=== PATIENT | female | born 1950 | race Caucasian/White ===

== ENCOUNTER 2021-01-31 08:57 | Inpatient (IN) ==
[2021-01-31] MEDS ORDERED: *HR* LORazepam 2 MG/ML VIAL ONE (09:03)
[2021-01-31] MEDS ORDERED: Isovue-370 500 ML BOTTLE IVP ONE ×2 (09:10→15:58)
[2021-01-31 09:25] LABS: Basophils % 0.3 %; Eosinophils # 0.1 K/mcL (0.0-0.6); Eosinophils % 0.5 %; Hematocrit 42.5 % (35.3-44.9); Hemoglobin 14.3 g/dL (11.5-15.4); Immature Granulocytes % 0.4 % (0-4); Lymphocytes # 2.3 K/mcL (0.6-4.6); Lymphocytes % 16.3 %; Mean Corpuscular HGB Conc 33.6 g/dL (31.6-35.5); Mean Corpuscular Hemoglobin 29.2 pg (28.0-33.3); Mean Corpuscular Volume 86.9 fL (83.0-100.0); Mean Platelet Volume 10.1 fL (9.4-12.4); Monocytes # 0.8 K/mcL (0.0-1.3); Monocytes % 6.1 %; Neutrophils # 10.6 K/mcL (1.6-8.9); Platelet Count 230 K/mcL (140-400); Red Blood Count 4.89 M/mcL (3.82-4.97); Red Cell Distribution Width 12.1 % (11.5-14.5); Segmented Neutrophils % 76.4 %; White Blood Count 13.8 K/mcL (4.3-11.1)
[2021-01-31 09:33] LABS: INR 1.2; Prothrombin Time 13.6 Seconds (9.4-12.1)
[2021-01-31 09:50] LABS: BUN/Creatinine Ratio 18 (6-26); Blood Urea Nitrogen 13 mg/dL (8-23); Calcium 9.2 mg/dL (8.6-10.3); Carbon Dioxide 28 mEq/L (23-29); Chloride 99 mEq/L (98-107); Creatine Kinase 47 Units/L (30-223); Glucose 182 mg/dL (70-105); Osmolality,Calculated 285 (280-300); Potassium 3.3 mEq/L (3.5-5.1); Sodium 135 mEq/L (136-145); Troponin I < 0.03 ng/mL (< 0.04); eGFR For African Americans > 60 (> 60); eGFR For Non-African Americans > 60 (> 60)
[2021-01-31] MEDS ORDERED: Piperacillin/Tazobactam 3.375 GM in 0.9 % Sodium Chloride Mini Bag 100 ML IVPB ONE (10:02)
[2021-01-31] MEDS ORDERED: Vancomycin 1,500 MG/265 ML IV.SOLN IVPB STA (10:02)
[2021-01-31] MEDS ORDERED: Potassium Chloride 20 MEQ, Lidocaine 1% 2 ML in 0.9 % Sodium Chloride 250 ML IVPB ONE (10:03)
[2021-01-31 10:13] LABS: Thyroid Stimulating Hormone 1.233 mcIU/mL (0.340-5.600)
[2021-01-31] MEDS ORDERED: Doxycycline 100 MG in 0.9 % Sodium Chloride Mini Bag 100 ML IVPB ONE (10:14)
[2021-01-31] MEDS ORDERED: Naloxone 0.4 MG/ML INJ IVP PRN (10:24)
[2021-01-31] MEDS ORDERED: Ondansetron 4 MG/2 ML VIAL IVP PRN (10:24)
[2021-01-31] MEDS ORDERED: Perflutren Lipid Microsphere 1.3 ML in 0.9 % Sodium Chloride 8.7 ML IVP PRN ×2 (10:59→11:00)
[2021-01-31 12:26] LABS: Bilirubin,Urine Negative (Negative); Blood,Urine Negative (Negative); Clarity,Urine Clear (Clear); Color,Urine Light-Yellow (Yellow); Glucose,Urine (UA) Normal (Normal); Ketones,Urine 10 mg/dL (Negative); Leukocyte Esterase,Urine Negative (Negative); Nitrite,Urine Negative (Negative); Protein,Urine Trace mg/dL (Neg-Trace); Specific Gravity,Urine 1.016 (1.010-1.025); Urobilinogen,Urine Normal (Normal)
[2021-01-31] MEDS: Vancomycin 1,500 MG/265 ML IV.SOLN IVPB SCH (14:26)
[2021-01-31] MEDS ORDERED: Cefepime HCl 2,000 MG in Water for inj. (sterile) 20 ML IVP SCH (16:00)
[2021-01-31] MEDS: Acetaminophen 325 MG TABLET PO PRN (16:27)
[2021-01-31] MEDS: cefTRIAXone 2,000 MG in Water for inj. (sterile) 20 ML IVP SCH (16:30)
[2021-01-31] MEDS: Doxycycline 100 MG in 0.9 % Sodium Chloride Mini Bag 100 ML IVPB SCH (18:06)
[2021-01-31] MEDS: Budesonide/Formoterol 160/4.5 1 PUFF INH IH SCH (20:17)
[2021-01-31] MEDS: Gabapentin 100 MG CAPSULE PO SCH (22:06)
[2021-02-01] MEDS: Doxycycline 100 MG in 0.9 % Sodium Chloride Mini Bag 100 ML IVPB SCH (06:55)
[2021-02-01 06:57] LABS: Hematocrit 39.1 % (35.3-44.9); Hemoglobin 12.9 g/dL (11.5-15.4); Mean Corpuscular Hemoglobin 29.3 pg (28.0-33.3); Mean Corpuscular Volume 88.7 fL (83.0-100.0); Mean Platelet Volume 10.9 fL (9.4-12.4); Platelet Count 204 K/mcL (140-400); Red Blood Count 4.41 M/mcL (3.82-4.97); White Blood Count 8.3 K/mcL (4.3-11.1)
[2021-02-01 07:13] LABS: BUN/Creatinine Ratio 21 (6-26); Blood Urea Nitrogen 13 mg/dL (8-23); Calcium 8.7 mg/dL (8.6-10.3); Carbon Dioxide 28 mEq/L (23-29); Chloride 99 mEq/L (98-107); Glucose 117 mg/dL (70-105); Osmolality,Calculated 281 (280-300); Potassium 3.1 mEq/L (3.5-5.1); Sodium 135 mEq/L (136-145); eGFR For African Americans > 60 (> 60); eGFR For Non-African Americans > 60 (> 60)
[2021-02-01] MEDS: Budesonide/Formoterol 160/4.5 1 PUFF INH IH SCH ×2 (07:36→19:40)
[2021-02-01] MEDS: hydroCHLOROthiazide 25 MG TABLET PO SCH (08:23)
[2021-02-01] MEDS: Gabapentin 100 MG CAPSULE PO SCH ×2 (08:23→20:59)
[2021-02-01] MEDS: Acetaminophen 325 MG TABLET PO PRN (08:24)
[2021-02-01] MEDS: Vancomycin 1,500 MG/265 ML IV.SOLN IVPB SCH (14:11)
[2021-02-01] MEDS: cefTRIAXone 2,000 MG in Water for inj. (sterile) 20 ML IVP SCH (16:14)
[2021-02-01] MEDS: Doxycycline 100 MG CAPSULE PO SCH (20:59)
[2021-02-02 03:02] LABS: Basophils % 0.4 %; Eosinophils # 0.2 K/mcL (0.0-0.6); Eosinophils % 2.7 %; Hematocrit 38.8 % (35.3-44.9); Hemoglobin 12.9 g/dL (11.5-15.4); Immature Granulocytes % 0.1 % (0-4); Lymphocytes # 1.9 K/mcL (0.6-4.6); Lymphocytes % 24.1 %; Mean Corpuscular HGB Conc 33.2 g/dL (31.6-35.5); Mean Corpuscular Hemoglobin 29.1 pg (28.0-33.3); Mean Corpuscular Volume 87.6 fL (83.0-100.0); Mean Platelet Volume 10.3 fL (9.4-12.4); Monocytes # 0.6 K/mcL (0.0-1.3); Neutrophils # 5.1 K/mcL (1.6-8.9); Platelet Count 227 K/mcL (140-400); Red Blood Count 4.43 M/mcL (3.82-4.97); Red Cell Distribution Width 11.9 % (11.5-14.5); Segmented Neutrophils % 65.7 %; White Blood Count 7.8 K/mcL (4.3-11.1)
[2021-02-02 03:19] LABS: BUN/Creatinine Ratio 21 (6-26); Blood Urea Nitrogen 12 mg/dL (8-23); Calcium 8.7 mg/dL (8.6-10.3); Carbon Dioxide 27 mEq/L (23-29); Chloride 98 mEq/L (98-107); Glucose 111 mg/dL (70-105); Osmolality,Calculated 284 (280-300); Potassium 3.4 mEq/L (3.5-5.1); Sodium 137 mEq/L (136-145); eGFR For African Americans > 60 (> 60); eGFR For Non-African Americans > 60 (> 60)
[2021-02-02] MEDS: Budesonide/Formoterol 160/4.5 1 PUFF INH IH SCH ×2 (07:30→20:18)
[2021-02-02] MEDS: Gabapentin 100 MG CAPSULE PO SCH ×2 (08:32→22:23)
[2021-02-02] MEDS: hydroCHLOROthiazide 25 MG TABLET PO SCH (08:33)
[2021-02-02] MEDS: Doxycycline 100 MG CAPSULE PO SCH ×2 (08:33→22:23)
[2021-02-02] MEDS ORDERED: Albuterol 2.5 MG/3 ML NEBULIZER IH PRN (12:39)
[2021-02-02] MEDS: Vancomycin 1,500 MG/265 ML IV.SOLN IVPB SCH (15:26)
[2021-02-02] MEDS: cefTRIAXone 2,000 MG in Water for inj. (sterile) 20 ML IVP SCH (15:43)
[2021-02-02] MEDS: Vancomycin 1,250 MG/262.5 ML IV.SOLN IVPB SCH (16:32)
[2021-02-02] MEDS: *HR* Heparin 5,000 UNIT/ML VIAL SQ SCH (16:32)
[2021-02-03] MEDS: Vancomycin 1,250 MG/262.5 ML IV.SOLN IVPB SCH (03:38)
[2021-02-03] MEDS: *HR* Heparin 5,000 UNIT/ML VIAL SQ SCH ×2 (05:32→16:01)
[2021-02-03] MEDS: Budesonide/Formoterol 160/4.5 1 PUFF INH IH SCH ×2 (07:46→19:40)
[2021-02-03] MEDS: Gabapentin 100 MG CAPSULE PO SCH ×2 (07:51→21:54)
[2021-02-03] MEDS: hydroCHLOROthiazide 25 MG TABLET PO SCH (07:51)
[2021-02-03] MEDS: Doxycycline 100 MG CAPSULE PO SCH ×2 (07:51→21:54)
[2021-02-03 12:42] LABS: BUN/Creatinine Ratio 21 (6-26); Blood Urea Nitrogen 13 mg/dL (8-23); Calcium 9.1 mg/dL (8.6-10.3); Carbon Dioxide 27 mEq/L (23-29); Chloride 98 mEq/L (98-107); Glucose 133 mg/dL (70-105); Magnesium 1.6 mg/dL (1.6-2.6); Osmolality,Calculated 286 (280-300); Phosphorous 3.1 mg/dL (2.7-4.5); Potassium 3.4 mEq/L (3.5-5.1); Sodium 137 mEq/L (136-145); eGFR For African Americans > 60 (> 60); eGFR For Non-African Americans > 60 (> 60)
[2021-02-03] MEDS: cefTRIAXone 2,000 MG in Water for inj. (sterile) 20 ML IVP SCH (16:52)
[2021-02-04 05:15] LABS: BUN/Creatinine Ratio 19 (6-26); Blood Urea Nitrogen 10 mg/dL (8-23); Calcium 8.9 mg/dL (8.6-10.3); Carbon Dioxide 28 mEq/L (23-29); Chloride 99 mEq/L (98-107); Glucose 113 mg/dL (70-105); Magnesium 1.6 mg/dL (1.6-2.6); Osmolality,Calculated 284 (280-300); Phosphorous 3.7 mg/dL (2.7-4.5); Potassium 3.4 mEq/L (3.5-5.1); Sodium 137 mEq/L (136-145); eGFR For African Americans > 60 (> 60); eGFR For Non-African Americans > 60 (> 60)
[2021-02-04] MEDS: *HR* Heparin 5,000 UNIT/ML VIAL SQ SCH ×2 (05:50→17:48)
[2021-02-04] MEDS: Acetaminophen 325 MG TABLET PO PRN (05:51)
[2021-02-04] MEDS: hydroCHLOROthiazide 25 MG TABLET PO SCH (09:16)
[2021-02-04] MEDS: Gabapentin 100 MG CAPSULE PO SCH ×2 (09:16→20:24)
[2021-02-04] MEDS: Doxycycline 100 MG CAPSULE PO SCH ×2 (09:16→20:24)
[2021-02-04] MEDS: Budesonide/Formoterol 160/4.5 1 PUFF INH IH SCH ×2 (11:04→20:03)
[2021-02-04 11:17] LABS: Anaplasma phagocytophilum IgG <1:80 (<1:80); Anaplasma phagocytophilum IgM < 1:16 (< 1:16)
[2021-02-04] MEDS: cefTRIAXone 2,000 MG in Water for inj. (sterile) 20 ML IVP SCH (18:23)
[2021-02-05] MEDS: Acetaminophen 325 MG TABLET PO PRN (05:21)
[2021-02-05] MEDS: *HR* Heparin 5,000 UNIT/ML VIAL SQ SCH ×2 (05:23→16:42)
[2021-02-05 07:04] LABS: Basophils % 0.4 %; Eosinophils # 0.2 K/mcL (0.0-0.6); Hematocrit 38.1 % (35.3-44.9); Hemoglobin 12.6 g/dL (11.5-15.4); Immature Granulocytes % 0.4 % (0-4); Lymphocytes # 2.4 K/mcL (0.6-4.6); Mean Corpuscular HGB Conc 33.1 g/dL (31.6-35.5); Mean Corpuscular Volume 87.8 fL (83.0-100.0); Mean Platelet Volume 9.9 fL (9.4-12.4); Monocytes # 0.4 K/mcL (0.0-1.3); Monocytes % 6.3 %; Neutrophils # 3.9 K/mcL (1.6-8.9); Platelet Count 278 K/mcL (140-400); Red Blood Count 4.34 M/mcL (3.82-4.97); Red Cell Distribution Width 11.8 % (11.5-14.5); Segmented Neutrophils % 55.9 %; White Blood Count 6.9 K/mcL (4.3-11.1)
[2021-02-05] MEDS: Budesonide/Formoterol 160/4.5 1 PUFF INH IH SCH ×2 (07:42→21:46)
[2021-02-05 07:52] LABS: BUN/Creatinine Ratio 22 (6-26); Blood Urea Nitrogen 14 mg/dL (8-23); Calcium 9.2 mg/dL (8.6-10.3); Carbon Dioxide 29 mEq/L (23-29); Chloride 97 mEq/L (98-107); Glucose 107 mg/dL (70-105); Osmolality,Calculated 291 (280-300); Potassium 3.6 mEq/L (3.5-5.1); Sodium 140 mEq/L (136-145); eGFR For African Americans > 60 (> 60); eGFR For Non-African Americans > 60 (> 60)
[2021-02-05] MEDS: hydroCHLOROthiazide 25 MG TABLET PO SCH (08:19)
[2021-02-05] MEDS: Doxycycline 100 MG CAPSULE PO SCH ×2 (08:19→19:59)
[2021-02-05] MEDS: Gabapentin 100 MG CAPSULE PO SCH ×2 (08:19→19:59)
[2021-02-05] MEDS: cefTRIAXone 2,000 MG in Water for inj. (sterile) 20 ML IVP SCH (16:44)
[2021-02-06] MEDS: *HR* Heparin 5,000 UNIT/ML VIAL SQ SCH ×2 (05:28→16:48)
[2021-02-06] MEDS: Acetaminophen 325 MG TABLET PO PRN (06:41)
[2021-02-06] MEDS: Budesonide/Formoterol 160/4.5 1 PUFF INH IH SCH ×2 (08:14→20:09)
[2021-02-06] MEDS: Doxycycline 100 MG CAPSULE PO SCH (09:14)
[2021-02-06] MEDS: Gabapentin 100 MG CAPSULE PO SCH ×2 (09:15→20:50)
[2021-02-06] MEDS: hydroCHLOROthiazide 25 MG TABLET PO SCH (09:15)
[2021-02-06] MEDS: cefTRIAXone 2,000 MG in Water for inj. (sterile) 20 ML IVP SCH (16:48)
[2021-02-06] MEDS ORDERED: Vancomycin 1,250 MG/262.5 ML IV.SOLN IVPB SCH (19:00)
[2021-02-07] MEDS: *HR* Heparin 5,000 UNIT/ML VIAL SQ SCH ×2 (05:48→18:21)
[2021-02-07 07:05] LABS: BUN/Creatinine Ratio 25 (6-26); Blood Urea Nitrogen 16 mg/dL (8-23); eGFR For African Americans > 60 (> 60); eGFR For Non-African Americans > 60 (> 60)
[2021-02-07] MEDS: Budesonide/Formoterol 160/4.5 1 PUFF INH IH SCH ×2 (07:40→20:16)
[2021-02-07] MEDS: hydroCHLOROthiazide 25 MG TABLET PO SCH (10:07)
[2021-02-07] MEDS: Gabapentin 100 MG CAPSULE PO SCH ×2 (10:07→21:30)
[2021-02-07] MEDS: Vancomycin 1,250 MG/262.5 ML IV.SOLN IVPB SCH ×2 (10:10→22:43)
[2021-02-07] MEDS: cefTRIAXone 2,000 MG in Water for inj. (sterile) 20 ML IVP SCH (16:04)
[2021-02-08] MEDS: *HR* Heparin 5,000 UNIT/ML VIAL SQ SCH ×2 (05:31→16:56)
[2021-02-08 06:33] LABS: Basophils % 0.4 %; Eosinophils # 0.2 K/mcL (0.0-0.6); Eosinophils % 2.1 %; Hematocrit 37.8 % (35.3-44.9); Hemoglobin 12.4 g/dL (11.5-15.4); Immature Granulocytes % 0.4 % (0-4); Lymphocytes # 2.2 K/mcL (0.6-4.6); Lymphocytes % 30.7 %; Mean Corpuscular HGB Conc 32.8 g/dL (31.6-35.5); Mean Corpuscular Volume 88.5 fL (83.0-100.0); Mean Platelet Volume 9.7 fL (9.4-12.4); Monocytes # 0.5 K/mcL (0.0-1.3); Monocytes % 6.3 %; Neutrophils # 4.3 K/mcL (1.6-8.9); Platelet Count 290 K/mcL (140-400); Red Blood Count 4.27 M/mcL (3.82-4.97); Red Cell Distribution Width 12.1 % (11.5-14.5); Segmented Neutrophils % 60.1 %; White Blood Count 7.1 K/mcL (4.3-11.1)
[2021-02-08 06:54] LABS: BUN/Creatinine Ratio 20 (6-26); Blood Urea Nitrogen 12 mg/dL (8-23); Calcium 9.1 mg/dL (8.6-10.3); Carbon Dioxide 27 mEq/L (23-29); Chloride 103 mEq/L (98-107); Glucose 101 mg/dL (70-105); Osmolality,Calculated 284 (280-300); Potassium 3.7 mEq/L (3.5-5.1); Sodium 137 mEq/L (136-145); eGFR For African Americans > 60 (> 60); eGFR For Non-African Americans > 60 (> 60)
[2021-02-08] MEDS: Budesonide/Formoterol 160/4.5 1 PUFF INH IH SCH ×2 (07:38→20:14)
[2021-02-08] MEDS: hydroCHLOROthiazide 25 MG TABLET PO SCH (08:53)
[2021-02-08] MEDS: Gabapentin 100 MG CAPSULE PO SCH ×2 (08:53→20:16)
[2021-02-08] MEDS ORDERED: 0.9 % Sodium Chloride 500 ML ONE (10:49)
[2021-02-08] MEDS ORDERED: 0.9 % Sodium Chloride 1,000 ML ONE (10:49)
[2021-02-08] MEDS ORDERED: *HR* Midazolam HCl 2 MG/2 ML VIAL ONE (11:32)
[2021-02-08] MEDS ORDERED: *HR* FentaNYL (PF) 100 MCG/2 ML VIAL ONE (11:32)
[2021-02-08] MEDS: cefTRIAXone 2,000 MG in Water for inj. (sterile) 20 ML IVP SCH (17:16)
[2021-02-08] MEDS: Vancomycin 1,250 MG/262.5 ML IV.SOLN IVPB SCH (17:17)
[2021-02-08] MEDS: Acetaminophen 325 MG TABLET PO PRN ×2 (22:23)
[2021-02-08 23:57] VITALS: BP 114/64; PULSE 75; TEMP 98.6; O2SAT 90
[2021-02-09] MEDS: Vancomycin 1,250 MG/262.5 ML IV.SOLN IVPB SCH (03:46)
[2021-02-09] MEDS: *HR* Heparin 5,000 UNIT/ML VIAL SQ SCH (05:38)
[2021-02-09] MEDS: Acetaminophen 325 MG TABLET PO PRN (08:49)
[2021-02-09] MEDS: Gabapentin 100 MG CAPSULE PO SCH (08:49)
[2021-02-09] MEDS: hydroCHLOROthiazide 25 MG TABLET PO SCH (08:50)
[2021-02-09] MEDS: Budesonide/Formoterol 160/4.5 1 PUFF INH IH SCH (10:22)
== END 2021-02-09 14:34 | disposition home or self-care (01) | DRG 243 ==
LOC: CDU 08:57 → EMEROOARM 08:57 → CDU 13:24 → 2NENU 16:27 → SUATTDRO 18:26
PROVIDERS: ADMIT Internal Medicine; ATTEND Internal Medicine